=== PATIENT | male | born 1980 | race Caucasian/White ===

== ENCOUNTER 2020-03-16 18:25 | Inpatient (IN) ==
[2020-03-16] MEDS ORDERED: MORPHINE IV ONE ×2 (19:17→20:23)
[2020-03-16] MEDS ORDERED: ZOFRAN IV ONE (19:17)
[2020-03-16] MEDS ORDERED: NS 1,000 ML IV ONE (19:17)
[2020-03-16 19:55] LABS: BASO# 0.05 X1000 (0.0-0.2); BASO% 0.9 % (0.0-0.8); EOS# 0.13 X1000 (0.0-0.7); EOS% 2.3 % (0.0-10.0); HEMATOCRIT 47.6 % (42.0-52.0); HEMOGLOBIN 16.6 g/dL (14.0-18.0); IMM GRAN# 0.02 X1000 (0.0-0.04); IMM GRAN% 0.3 % (0.0-0.5); LYMPH# 1.61 X1000 (1.2-3.4); LYMPH% 27.9 % (20.5-51.1); MCH 29.5 PG (27-31); MCHC 34.9 g/dL (33-37); MCV 84.7 FL (81-99); MONO# 0.67 X1000 (0.11-0.59); MONO% 11.6 % (1.7-9.3); MPV 9.6 FL (7.4-10.4); NEUT# 3.29 X1000 (1.4-6.5); PLT 204 X1000 (130-400); RBC 5.62 XMIL (4.7-6.1); RDW 13.7 % (11.5-14.5); WBC 5.77 X1000 (4.8-10.8)
[2020-03-16 20:00] LABS: URINE SOURCE CLEAN CATCH
[2020-03-16 20:13] LABS: BILIRUBIN URINE MODERATE (NEGATIVE); BLOOD URINE MODERATE (NEGATIVE); COLOR YELLOW; GLUCOSE URINE NEGATIVE (NEGATIVE); KETONE URINE 60 mg/dL (NEGATIVE); LEUKOCYTES URINE TRACE (NEGATIVE); NITRITE URINE NEGATIVE (NEGATIVE); PROTEIN URINE 100 mg/dL (NEGATIVE); SP GRAVITY URINE 1.033; TURBIDITY URINE CLEAR (CLEAR); UR EPITHELIAL CELLS <10 /HPF (<10); URINE BACTERIA 2+ /HPF; URINE CASTS NONE SEEN; URINE CRYSTALS NONE SEEN; URINE RBC <10 /HPF (<10); URINE WBC <10 /HPF (<10); URINE YEAST NONE SEEN; UROBILINOGEN URINE 6 mg/dL (NORMAL)
[2020-03-16 20:14] LABS: URINE SMALL ROUND CELLS NONE SEEN
[2020-03-16 20:28] LABS: AGAP 13; ALBUMIN 3.9 g/dL (3.5-5.0); ALKALINE PHOSPHATASE 169 U/L (32-122); BUN 15 mg/dL (8-22); CALCIUM 8.9 mg/dL (8.8-10.2); CHLORIDE 100 mmol/L (98-107); COSMO 274; CREATININE 0.7 mg/dL (0.7-1.2); ESTIMATED GFR > 60; GLUCOSE 90 mg/dL (70-104); GOT 4323 U/L (10-34); GPT 6096 U/L (10-44); LIPASE 34 U/L (13-60); SODIUM 137 mmol/L (136-145); TCO2 25 mmol/L (25-35)
--- NOTE | 2020-03-16 21:17 | Diag Imaging Result Doc PS360 ---
EXAM: CT ABD/PELVIS W/IV CONT ONLY INDICATION: Abdominal pain, very tender RUQ TECHNIQUE: This exam was performed using automated exposure control, adjustment of mA or kV according to patient size, and/or use of iterative reconstruction technique. COMPARISON: None. FINDINGS: There is prominent gallbladder wall thickening and pericholecystic inflammatory stranding consistent with cholecystitis. There is trace free fluid tracking from the gallbladder fossa inferiorly. There is mild intrahepatic periportal edema. The liver is unremarkable, otherwise. The spleen, pancreas, adrenal glands, kidneys, and urinary bladder are unremarkable. The appendix is normal. There is no evidence of focal bowel wall thickening or bowel obstruction. The remainder of the GI tract is grossly unremarkable. No free abdominal gas is identified. IMPRESSION: Inflammatory changes around the gallbladder with wall thickening and pericholecystic fluid consistent with cholecystitis. Electronically signed by Laron Alexis 03/16/2020 9:15 PM
[2020-03-16] MEDS ORDERED: FLAGYL 500 MG/NS 500 MG/100 ML IVPB IV ONE (22:22)
[2020-03-16] MEDS ORDERED: CIPRO 400 MG/D5W 400 MG/200 ML IVPB IV ONE (22:22)
--- NOTE | 2020-03-16 22:46 | GENERAL SURGERY CONSULTATION ---
DATE: 03/16/2020 REASON FOR CONSULTATION: Possible cholecystitis. HISTORY OF PRESENT ILLNESS: This is a 39-year-old gentleman who presented with 3 days of abdominal discomfort, nausea. He has recently injected methamphetamine 3 weeks ago, but he is in recovery program now and has been diligent about that. He does smoke, but says he had not felt like it lately. MEDICAL HISTORY: Otherwise negative. SURGICAL HISTORY: He has had an orthopedic procedure to his arm. SOCIAL HISTORY: Recent IV methamphetamine use. No significant alcohol. He does smoke. FAMILY HISTORY: Negative for inherited hepatitis. REVIEW OF SYSTEMS: Ten-point review of systems negative otherwise mentioned in HPI. PHYSICAL EXAMINATION: Vital signs: He is afebrile. No tachycardia. Blood pressure has been okay. General: He is alert, appears uncomfortable but in no acute distress. HEENT: He does have faint scleral icterus. No cervical mass. Cardiovascular: Normal rate. Pulmonary: No increased work of breathing. Abdomen: Soft, tender in the right upper quadrant but nondistended. No peritonitis Integument: Warm, dry. Faint jaundice noted. Psychiatric: Appropriate affect. Neurologic: No gross deficits. Lymphatic: No cervical, axillary or inguinal adenopathy. LABORATORY DATA: White count is normal. Hematocrit is normal. His bilirubin is in the 5 range. Transaminases were 4000 and 6000. Alkaline phosphatase elevated. Lipase normal. Urinalysis has some bilirubin, no nitrates noted, no leukocytes. IMAGING: CT scan shows pericholecystic fluid, but no intrahepatic biliary dilation. No other abnormalities. ASSESSMENT AND PLAN: This is a gentleman with possible cholecystitis. It is possible this is drug or viral-mediated hepatitis given the profound elevation of his transaminases. As such we are going to admit to the hospitalists, check a UDS as well as a hepatitis panel. If this checks out, then we will plan on cholecystectomy. We discussed the possibility of this with the patient. We did discuss risks of bleeding, infection, damage to surrounding structures, conversion to open, anesthetic related complication, worsening liver dysfunction, possible common duct stone, need for ERCP and bile leak. He understands all this and consents. We will keep him n.p.o., start him on Zosyn and transfer him to [facility]. cc: Mack Archer MD
--- NOTE | 2020-03-16 22:52 | PROVIDER DOCUMENTATION ---
This chart was entered by Amarilis Parish Scribe, acting as scribe for Rhina Vivas MD. HPI-Abdominal Pain/GI Problem - General Chief Complaint: Abdominal Pain Stated Complaint: ABDOMINAL PAIN Time Seen by Provider: 03/16/20 18:55 Source: patient Allergies/Adverse Reactions: Patient Allergies Allergy/AdvReac Type Severity Reaction Status Date / Time amoxicillin Allergy ITCHING Verified 03/16/20 19:40 Home Medications: Home Medication List Medication Instructions Recorded Confirmed Last Taken Type NK [No Home Medications] 03/16/20 03/16/20 Unknown History - History of Present Illness-ABD Nature of Presenting Problems: Pt is a 39 yowm in ED with c/o of generalized abdominal pain, vomitting, chills, weakness, and fatigue that started 3 days ago and has gotten worse. Pt also states that he has not had a BM in 3 days. Pt reports that he has not been able to keep much food or water down due to vomiting today. Pt has been at a [facility] for the last 3 weeks while getting of meth. Pt does not know if he is running a fever. Pt is moderately distressed, curled up on exam bed and nontoxic in appearance. Abdominal Pain Onset Location: reports: generalized abdomen Pain Radiation: reports: no radiation Quality of Pain: reports: stabbing, throbbing Severity in ED: reports: moderate Onset/Duration: reports: gradual, 3 days ago Timing: reports: still present, constant, getting worse Activities at Onset: reports: light activity Modifying Factors: worse with: movement, palpation Associated Symptoms: reports: constipation, fever/chills, nausea, vomiting, weakness. denies: diarrhea, shortness of breath Last BM: 3 days ago # of Diarrhea Episodes: 0 # of Vomiting Episodes: 8 Emesis Description: reports: clear Bruising or Bleeding Gums?: No Similar Symptoms Previously?: No Recently seen or treated by another doctor?: Yes (03/09/2020 in ED) Review of Systems - Adult - REVIEW OF SYSTEMS - ADULT Constitutional: reports: see HPI, chills Eyes: reports: no symptoms reported Ears, Nose, Mouth & Throat: reports: no symptoms reported Cardiovascular: denies: chest pain, syncope Respiratory: denies: cough, shortness of breath Gastrointestinal: reports: abdominal pain, constipation, nausea, vomiting. denies: diarrhea Genitourinary: reports: no symptoms reported Musculoskeletal: reports: no symptoms reported Integumentary: reports: no symptoms reported Neurological: reports: no symptoms reported Psychiatric: reports: no symptoms reported Endocrine: reports: no symptoms reported Hematologic/Lymphatic: reports: no symptoms reported Allergic/Immunologic: reports: no symptoms reported All Other Systems: Reviewed and Negative Past History - Adult - PAST MEDICAL HISTORY-ADULT Review of Records: reports: Old Records Reviewed, Nursing Assessment Review, Medications Reviewed, Social history reviewed & non-contributory. Major Childhood Illnesses: reports: denies history Cardiovascular: reports: denies history Respiratory: reports: asthma Gastrointestinal: reports: denies history Genitourinary: reports: denies history Musculoskeletal: reports: denies history Neurological: reports: denies history Endocrine/Immune: reports: denies history Other Conditions: reports: denies history - IMMUNIZATION STATUS Childhood Immunizations: See Nurse Assessment Flu Vaccine: See Nurse Assessment - FAMILY HISTORY Family History: reviewed, not pertinent - SOCIAL HISTORY Smoking: cigarettes, less than 1 pack/day Provider spent 3-5 mins advising pt. on dangers of tobacco.: Discussed manners to quit use, and f/u contacts for add'l counseling. Substance Use: amphetamines (at [facility] to detox from meth) Living Situation: other (half way house to get off meth) Physical Exam-General - PHYSICAL EXAM-ADULT Initial Vital Signs Reviewed: Yes (HR 108) - CONSTITUTIONAL General Appearance: alert, moderate distress - EYES Eyes: PERRL/EOMI, pink conjunctivae - HEAD, EARS, NOSE, MOUTH & THROAT HENMT: normocephalic/atraumatic, moist mucous membranes, pharynx normal - NECK Neck: non-tender, full range of motion, supple - RESPIRATORY Respiratory: chest non-tender, lungs clear, normal breath sounds, no respiratory distress - CARDIOVASCULAR Cardiovascular: normal peripheral pulses, tachycardia - GASTROINTESTINAL (ABDOMEN) Abdominal Exam: tenderness (moderate RUQ; slightly less LLQ) - LYMPHATIC Lymphatic: no adenopathy - MUSCULOSKELETAL Back Exam: normal inspection, no CVA tenderness, no vertebral tenderness Extremity: normal range of motion, non-tender - SKIN Integumentary: normal color, normal turgor, warm/dry - NEUROLOGIC Neurologic: grossly normal - PSYCHIATRIC Psych/Mental Status: normal thought content, normal thought process, oriented x 3, anxious, disheveled Progress - PLAN OF CARE/RESULTS Progress/Plan/Lab Results: Vital Signs - 8 hr 03/16/20 18:39 Temperature 98.3 F Pulse Rate 108 H Respiratory Rate 18 Blood Pressure 113/72 O2 Sat by Pulse Oximetry 98 Orders Category Date Time Status Saline Loc NOW Care 03/16/20 19:01 Active CBC WITH ELECTRONIC DIFF [HEME] Stat Lab 03/16/20 19:01 Uncollected COMPREHENSIVE METABOLIC PANEL [CHEM] Stat Lab 03/16/20 19:01 Uncollected LIPASE [CHEM] Stat Lab 03/16/20 19:01 Uncollected UA NIMS W/REFLEX CULT [URINALYSIS] Stat Lab 03/16/20 19:02 Uncollected Result Diagrams: 03/16/20 19:23 03/16/20 19:23 - REASSESSMENT Reassessment #1 Time Reassessed: 20:22 Status: unchanged (MORPHINE 4MG CAUSED VOMITING , THEN PAIN IMPROVED BUT NOW RETURNING, STUDIES PENDING.) - CT/MRI 1 CT Study: Abdomen Impression: See EMR Report ([facility] - [address] [place] [address], [address], [place] [address] [facility] - [address] [place] [address] Department of Imaging Patient: RHINA ARMSTRONGADM Date: 03/16/20MR#: [id number] : 1980ADM [id number] Age/Sex: 39/MRoom/Bed: Loc: P.ED Ordering Physician: Rhina Vivas MD Family Physician: None,PCP Reason for Procedure: morded abd pain, very tender RUQ Signed EXAM: CT ABD/PELVIS W/IV CONT ONLY INDICATION: Abdominal pain, very tender RUQ TECHNIQUE: This exam was performed using automated exposure control, adjustment of mA or kV according to patient size, and/or use of iterative reconstruction technique. COMPARISON: None. FINDINGS: There is prominent gallbladder wall thickening and pericholecystic inflammatory stranding consistent with cholecystitis. There is trace free fluid tracking from the gallbladder fossa inferiorly. There is mild intrahepatic periportal edema. The liver is unremarkable, otherwise. The spleen, pancreas, adrenal glands, kidneys, and urinary bladder are unremarkable. The appendix is normal. There is no evidence of focal bowel wall thickening or bowel obstruction. The remainder of the GI tract is grossly unremarkable. No free abdominal gas is identified. IMPRESSION: Inflammatory changes around the gallbladder with wall thickening and pericholecystic fluid consistent with cholecystitis. Electronically signed by Laron Alexis 03/16/2020 9:15 PM 03/16/202114 Interpreting Physician: Laron Alexis MD Dictated Date/Time: 03/16/202110 cc: Rhina Vivas MD; None,PCP) - CONSULTS/PCP/HOSPITALIST Notification #1 *Consult/PCP/Hospitalist*: dr rashi handy Time Discussed: 22:22 Consult Disposition: Admit (recommends admit to [facility] hospitalist and will co nsult.) #2 Consult: Dr. Tate Time Discussed: 22:28 Consult Disposition: Admit ([facility]) Departure - Departure Date of Disposition Decision: 03/16/20 Time of Disposition Decision: 21:35 DIAGNOSIS: Acute cholecystitis, Acute cholecystitis due to biliary calculus, LFT elevation, Hepatitis Abdominal pain Qualifiers: Abdominal location: right upper quadrant Qualified Code(s): R10.11 - Right upper quadrant pain Disposition: ADMITTED INPATIENT 09 Certified Medical Emergency: Emergent Condition: Stable - Critical Care Note This patient required my direct & personal management of CC.: Yes Total Time (mins): 40 Critical Care Statement: This patient required my direct personal management to treat or rule out processes, the absence of which, could potentiallly result in sudden, clinically significant life or limb threatening deterioration. Attestation - Physician/ JAUN Attestation Patient care was provided by Advanced Practice Provider:: No The physician spent face to face time with patient:: Yes Advanced Practice Provider documentation review:: Supervising physician onsite and consulted in the evaluation and care of this patient. The physician did have a face to face encounter with the patient. This chart was documented by the indicated scribe, (Amarilis Parish, [employer]) and accurately reflects the services I performed and decisions made by me, Rhina Vivas MD, as attested by the provider's signature.
--- NOTE | 2020-03-17 01:40 | HISTORY AND PHYSICAL ---
PRIMARY CARE PHYSICIAN: None. CHIEF COMPLAINT: Abdominal pain x3 days. HISTORY OF PRESENTING ILLNESS: A 39-year-old male with a history of asthma and IV drug abuse, who had presented to emergency department with 3 days history of having right upper quadrant abdominal pain. The patient states that he was at times nauseated and did not feel well. He was seen in this ED initially at [facility] and, at that time, he had a CT scan done which did show a suspicion for cholecystitis. His case was discussed with General surgery, who recommended the patient be transferred to [facility] for further evaluation and management. At the time of my examination, patient denied any headache, chest pain, shortness of breath, hemoptysis or weight changes, but complained of abdominal pain. PAST MEDICAL HISTORY: Includes asthma. PAST SURGICAL HISTORY: Left arm surgery. ALLERGIES: Amoxicillin. CURRENT MEDICATIONS: None. SOCIAL HISTORY: Wrokmmo-knxs-exewp history of smoking. Denies any history of alcohol use. Admits to IV methamphetamine use. FAMILY HISTORY: No history of coronary disease. REVIEW OF SYSTEMS: Fourteen point review of systems is as in HPI. Other systems negative physical. EXAMINATION: General: Cooperative, friendly male. He is resting more comfortably now. Vital Signs: Temperature 98 degrees, pulse 86, respiration 18, blood pressure 114/74. HEENT: Atraumatic, normocephalic. Extraocular movements intact. PERRLA. Neck: No masses. Chest: Clear to auscultation. Cardiovascular: Regular rhythm. Abdomen: Soft, right upper quadrant tenderness. Extremities: No edema. Neurologic: He is awake, alert, oriented x3. Genitourinary: No bladder distention. Skin: Warm. LABORATORIES AND STUDIES: Sodium 137, potassium 4.0, chloride 100, CO2 is 25, BUN is 15, creatinine 0.7. Glucose 90, bilirubin is 5.50, AST is 4323, ALT 6096, alkaline phosphatase 169. Abdominal and pelvic CT shows inflammatory changes around the gallbladder, wall thickening and pericholecystic fluid consistent with cholecystitis. ASSESSMENT: This 39-year-old male with a history of asthma, presented to emergency department with 3 days history of having right upper quadrant abdominal pain. He was seen in the ED at [facility] and due to lack of subspecialist care, he was transferred for further evaluation of cholecystitis. 1. Acute cholecystitis. 2. Acute hepatitis. 3. IV drug abuse. 4. Asthma. PLAN: 1. We will admit patient to surgical floor. 2. General surgery was already consulted. 3. We will keep patient NPO. Give medical pain control and start him on IV antibiotics. 4. We will check a hepatitis profile. 5. Counseled patient on IV drug cessation. 6. We will use albuterol nebs p.r.n. if needed. 7. We will put patient on DVT prophylaxis with SCD. 8. We will continue to follow and reassess, make further recommendation based on patient's clinical course. cc: Kt Tate MD
[2020-03-17] MEDS: NS 1,000 ML IV SCH ×3 (02:00→21:41)
[2020-03-17] MEDS: INVANZ 1 GM/NS 1 GM/50 ML IVPB IV SCH (02:00)
[2020-03-17] MEDS: MORPHINE IV PRN ×2 (02:00→18:23)
[2020-03-17] MEDS: ZOFRAN IV PRN (03:06)
[2020-03-17 07:58] LABS: BASO# 0.16 X1000 (0.0-0.2); EOS# 0.09 X1000 (0.0-0.7); EOS% 1.7 % (0.0-10.0); HEMATOCRIT 44.9 % (42.0-52.0); HEMOGLOBIN 15.5 g/dL (14.0-18.0); LYMPH# 1.36 X1000 (1.2-3.4); LYMPH% 25.9 % (20.5-51.1); MCH 29.5 PG (27-31); MCHC 34.5 g/dL (33-37); MCV 85.5 FL (81-99); MONO# 0.49 X1000 (0.11-0.59); MONO% 9.3 % (1.7-9.3); MPV 9.5 FL (7.4-10.4); NEUT# 3.16 X1000 (1.4-6.5); NEUT% 60.1 % (42.2-75.2); PLT 192 X1000 (130-400); RBC 5.25 XMIL (4.7-6.1); RDW 14.1 % (11.5-14.5); WBC 5.26 X1000 (4.8-10.8)
[2020-03-17 09:14] LABS: UR AMPHETAMINES QUAL NONE DETECTED (NONE DETECT); UR BARBITUATES QUAL NONE DETECTED (NONE DETECT); UR BENZODIAZEPIN QUAL NONE DETECTED (NONE DETECT); UR CANNABINOIDS QUAL NONE DETECTED (NONE DETECT); UR COCAINE QUAL NONE DETECTED (NONE DETECT); UR METHADONE QUAL NONE DETECTED (NONE DETECT); UR OPIATES QUAL PRESUMPTIVE POSITIVE (NONE DETECT); UR OXYCODONE QUAL NONE DETECTED (NONE DETECT); UR PCP QUAL NONE DETECTED (NONE DETECT)
[2020-03-17 09:15] LABS: AGAP 13; ALB/GLOB RATIO 1.1; ALBUMIN 3.2 g/dL (3.5-5.0); ALKALINE PHOSPHATASE 160 U/L (32-122); BUN 16 mg/dL (8-22); CALCIUM 8.1 mg/dL (8.8-10.2); CHLORIDE 103 mmol/L (98-107); COSMO 277; CREATININE 0.8 mg/dL (0.7-1.2); ESTIMATED GFR > 60; GLUCOSE 75 mg/dL (70-104); GOT 4282 U/L (10-34); GPT 5793 U/L (10-44); LIPASE 18 U/L (13-60); POTASSIUM 4.4 mmol/L (3.5-5.1); SODIUM 139 mmol/L (136-145); TCO2 23 mmol/L (25-35); TOTAL BILIRUBIN 6.05 mg/dL (0.20-1.00)
--- NOTE | 2020-03-17 10:40 | PROGRESS NOTE ---
DATE: 03/17/2020 SUBJECTIVE: Patient reports still having right upper quadrant abdominal pain. Denies any fever or chills. OBJECTIVE: Vital Signs: Temperature 97.6 degrees, heart rate 77, respiratory rate 18, blood pressure 107/70, O2 saturation is 96% on room air. General examination: This is a 39-year-old male lying in bed in no acute distress. HEENT: Head is normocephalic, atraumatic. Icteric sclerae and pale conjunctivae. Neck: No JVD noted. No carotid bruit. Cardiovascular Exam: S1, S2 heard. No murmurs, gallops, or rubs. Regular rate and rhythm. Respiratory Exam: Clear bilaterally to auscultation. No work of breathing or using accessory muscles. Abdomen: Soft, mildly tender to palpation in the right upper quadrant but no signs of peritoneal irritation. Bowel sounds present. No organomegaly. Extremities: No clubbing, cyanosis, or edema. Peripheral pulses present in both legs. Neurological Exam: The patient is alert and oriented x3, moves 4 extremities. LABORATORY DATA: CBC is unremarkable. CMP reveals AST 4282 and ALT 5793 with alkaline phosphatase 160, and total bilirubin 6.05. ASSESSMENT AND PLAN: 1. Acute cholecystitis. 2. Acute hepatitis. 3. Active intravenous drug abuse. 4. History of bronchial asthma. PLAN: Patient has been admitted to the hospital here for acute cholecystitis. We are still pending the results off abdominal ultrasound. The transaminases are very elevated, which makes me think this patient may have developed also acute hepatitis considering his current history of IV drug use. We are going to check also a HIV as well. Will continue with the n.p.o. General Surgery is following this patient. The patient has been encouraged to stop abusing drugs. cc: Sean Abrams MD MTDD
--- NOTE | 2020-03-17 11:45 | GENERAL SURGERY PROGRESS NOTE ---
DATE: 03/17/2020 SUBJECTIVE: His abdominal pain is better this morning. There is still some nausea. OBJECTIVE: Vital Signs: No fevers documented. Tachycardia, blood pressure 107/70. General: He is alert. He is still faintly jaundiced. Abdomen: Soft. There is no peritonitis. Mild tenderness along the right upper quadrant. DIAGNOSTIC DATA: His white count remains normal at 5, hematocrit 44, creatinine 0.8. His bilirubin is 6.05, slightly up from yesterday. His transaminases remain in the 4000 to almost 6000 range. His lipase again is normal. UDS was negative for amphetamines, but positive for opiates, most likely from what he received in the emergency department. He has hepatitis panel pending; hopefully, this will result later today. I have ordered a fractionated bilirubin to check this as well. ASSESSMENT AND PLAN: A 39-year-old gentleman with hepatitis, presumptively this thought viral given his intravenous drug abuse. He does have edema around his gallbladder, which is not uncommon in acute hepatitis. It is unclear if this is the main source, although given his profound transaminitis, I think that this is unlikely gallbladder mediated, and as such, I would advise continued treating with intravenous antibiotics and ruling out underlying viral acute hepatitis, which if were the case would be made substantially worse by removing his gallbladder. I have discussed the plan with the patient. I will agree with the current antibiotics and his ongoing workup. I have ordered an MRCP to rule out a distal bile duct obstruction. We will see what his ultrasound shows as well. I tentatively have him posted for tomorrow if his workup is negative for underlying viral etiology, otherwise we will continue supportive care. cc: MD Sean Lisa MD
--- NOTE | 2020-03-17 12:32 | Diag Imaging Result Doc PS360 ---
EXAM: MRI MRCP (ABD W/O CONTRAST) INDICATION: possible cbd obstruction TECHNIQUE: COMPARISON: CT abdomen and pelvis dated 03/16/2020. No prior MRCP is available for comparison. FINDINGS: The gallbladder is collapsed. As was seen on the previous CT, there is significant wall thickening as well as pericholecystic edema with trace nonloculated fluid extending from the gallbladder fossa to the lower abdomen consistent with cholecystitis. The common bile duct is normal in diameter measuring approximately 3 mm in diameter. There are no ductal filling defect to indicate choledocholithiasis. The liver is unremarkable. The pancreas appears normal. No discrete pancreatic mass is appreciated. The spleen, adrenal glands, kidneys, and the visualized segments of the GI tract are unremarkable. There has been development of trace pleural fluid at the right lung base. IMPRESSION: 1.Findings consistent with acute cholecystitis. 2.Normal common bile duct diameter with no filling defects appreciated. 3.Development of a trace effusion at the right lung base. Electronically signed by Laron Alexis 03/17/2020 12:30 PM
[2020-03-17 19:56] LABS: HIV ANTIBODY SCREEN SEE COMMENTS
[2020-03-18] MEDS: INVANZ 1 GM/NS 1 GM/50 ML IVPB IV SCH (01:08)
[2020-03-18] MEDS: MORPHINE IV PRN ×2 (06:44→14:03)
[2020-03-18 07:16] LABS: BASO# 0.04 X1000 (0.0-0.2); BASO% 0.9 % (0.0-0.8); EOS# 0.07 X1000 (0.0-0.7); EOS% 1.6 % (0.0-10.0); HEMATOCRIT 42.1 % (42.0-52.0); HEMOGLOBIN 14.5 g/dL (14.0-18.0); LYMPH# 1.24 X1000 (1.2-3.4); LYMPH% 28.7 % (20.5-51.1); MCH 29.4 PG (27-31); MCHC 34.4 g/dL (33-37); MCV 85.4 FL (81-99); MONO# 0.52 X1000 (0.11-0.59); MPV 9.7 FL (7.4-10.4); NEUT# 2.45 X1000 (1.4-6.5); NEUT% 56.8 % (42.2-75.2); PLT 214 X1000 (130-400); RBC 4.93 XMIL (4.7-6.1); RDW 14.1 % (11.5-14.5); WBC 4.32 X1000 (4.8-10.8)
[2020-03-18 07:27] LABS: INR 1.76; PROTIME 20.9 Seconds (11.0-16.0)
[2020-03-18 07:52] LABS: AGAP 12; ALB/GLOB RATIO 1.1; ALBUMIN 2.8 g/dL (3.5-5.0); ALKALINE PHOSPHATASE 153 U/L (32-122); BUN 15 mg/dL (8-22); CALCIUM 7.9 mg/dL (8.8-10.2); CHLORIDE 102 mmol/L (98-107); COSMO 275; CREATININE 0.8 mg/dL (0.7-1.2); ESTIMATED GFR > 60; GLUCOSE 80 mg/dL (70-104); GOT 5058 U/L (10-34); GPT 6220 U/L (10-44); POTASSIUM 4.2 mmol/L (3.5-5.1); SODIUM 138 mmol/L (136-145); TCO2 24 mmol/L (25-35); TOTAL BILIRUBIN 6.01 mg/dL (0.20-1.00); TOTAL PROTEIN 5.4 g/dL (6.3-8.3)
--- NOTE | 2020-03-18 08:38 | Diag Imaging Result Doc PS360 ---
EXAM: US ABDOMEN-COMPLETE INDICATION: abdominal pain COMPARISON: None. FINDINGS: The gallbladder wall is echogenic and markedly thickened and edematous. No discrete shadowing gallstones are identified. There does appear to be sludge in the gallbladder lumen. The common bile duct is normal in diameter. Sonographic Oneal's sign was reported to be positive by the technologist. The liver is grossly unremarkable. Portal venous flow is hepatopetal. The visualized pancreas is unremarkable. The aorta and IVC are grossly unremarkable. The spleen is unremarkable. The kidneys are grossly unremarkable. There is an incidental small right pleural effusion. IMPRESSION: 1.Markedly thickened and edematous gallbladder wall and a positive sonographic Oneal sign suggesting acute cholecystitis. Another differential consideration is acute hepatitis, which can present with gallbladder wall thickening. Please correlate clinically. 2.Small right pleural effusion noted incidentally. Electronically signed by Laron Alexis 03/18/2020 8:35 AM
--- NOTE | 2020-03-18 09:04 | PROGRESS NOTE ---
DATE: 03/18/2020 SUBJECTIVE: He came in on the , complaining of abdominal pain for 3 days. He is a 39-year- old white male with history of asthma and IV drug abuse, who presented to the emergency department with a 3-day history of having right upper quadrant abdominal pain. States that he was at times nauseated and did not feel well. Went to the emergency room at [facility]. At that time, CT scan showed suspicion for cholecystitis. Case was discussed with General Surgery, who recommended the patient transfer to [facility]. At that time on examination, denied any headache, chest pain, shortness of breath, hemoptysis, weight changes. No complaint. Past medical history with history of asthma, left arm surgery in the past. Dr. Archer had evaluated. CT showed pericholecystic fluid, but no intrahepatic biliary dilatation. No other abnormalities. So, possible cholecystitis. It is possible this could be drug or viral mediated hepatitis given his elevation in transaminases. Checking an ultrasound, which was done this morning and got a hepatitis panel. Exam today, still says the pain is worse, uncomfortable, and points to the epigastrium and right upper quadrant, but it goes across the top of the midline of the abdomen. OBJECTIVE: Temperature 98.8 degrees, pulse 89, respirations 18, blood pressure 104/67.Eyes: Pupils are equal. Neck: No distended neck veins. Lungs: Clear in all lung mauro. Cardiovascular exam: Regular rhythm and rate without murmur or S3. : Urine output was 1900 mL. LABS: Review of his blood work yesterday: White blood cell count was 4320, hematocrit 42, platelet count 214,000. Sodium 138, potassium 4.2, chloride 102. BUN is 12, creatinine 0.8. Transaminases: AST was at 4000, when it came in it was 5000 with ALT of 6000, total bilirubin is around 6. Pro time is 20. He was positive for opiates on his drug screen. X-RAYS: Abdominal and pelvic CT: Inflammatory change around the gallbladder wall thickening and pericholecystic fluid consistent with possible cholecystitis. MRCP findings: Consistent with acute cholecystitis. Normal common bile duct diameter. No filling defects appreciated. Development of trace effusion in the right lung base. Abdominal ultrasound was done this morning. Results pending. REVIEW OF HIS ORDERS: He is on ertapenem 1 g IV q. 24 hours. Getting morphine 2 mg IV q. 4 hours p.r.n. pain. Ciprofloxacin was given 1 dose and metronidazole is given 1 dose of IV in the emergency room. cc: MD Sean Arciniega MD
[2020-03-18] MEDS ORDERED: DIPRIVAN 1% ONE (11:29)
[2020-03-18] MEDS ORDERED: XYLOCAINE-MPF 2% ONE (11:29)
[2020-03-18] MEDS ORDERED: SUFENTA ONE ×2 (11:31→11:57)
[2020-03-18] MEDS ORDERED: VERSED ONE (11:41)
--- NOTE | 2020-03-18 13:14 | GENERAL SURGERY PROGRESS NOTE ---
DATE: 03/18/2020 SUBJECTIVE: He is still having some vague discomfort in his right upper quadrant and epigastrium. Low-grade fever of 100 overnight but afebrile this morning, pulse 89, and blood pressure 104/67. In general, he is alert. His urine is dark in the urinal. He does have a stable amount of icterus and jaundice. His abdomen is soft. There is no peritonitis. Subjective tenderness along the upper quadrants of his abdomen, but no elvia guarding or rebound. His white count is 4 and hematocrit 42. His INR is 1.76, which is elevated. Creatinine is 0.8. His bilirubin stable at 6. His transaminases remain elevated at 5000 to 6000 range. The lipase was normal yesterday. He had an HIV test that was negative. His direct component was 5. He had an MRCP that showed no biliary dilation or biliary obstruction. Again, showed edema and thickening of the gallbladder wall. He had an abdominal ultrasound again that showed normal bile duct. No obvious gallstones but there was tenderness noted over the right upper quadrant. The gallbladder wall was thickened and edematous, but not significantly dilated. ASSESSMENT AND PLAN: This is a 39-year-old gentleman with acute hepatitis of unclear etiology. I have called the lab, and viral panel hopefully will be back later today or in the morning. His transaminitis and hyperbilirubinemia remain the same although there is no evidence of biliary obstruction, which would suggest more of an intrahepatic issue. There is potentially multiple explanation for this. I still feel as though the gallbladder finding may be secondary to his underlying liver issue, but he is on appropriate antibiotics. His white count remains normal, and he is hemodynamically stable so I do not suspect that we have a worsening infectious issue here. We will continue to follow along. If the etiology of his hepatitis has been ruled out, and we feel this is primary gallbladder mediated we will consider cholecystectomy. cc: MD Ben Lisa MD
[2020-03-18] MEDS: ZOFRAN IV PRN (14:03)
[2020-03-18] MEDS: NS 1,000 ML IV SCH (14:05)
[2020-03-18 15:40] LABS: HEPATITIS PROFILE ACUTE SEE COMMENTS
[2020-03-19] MEDS: INVANZ 1 GM/NS 1 GM/50 ML IVPB IV SCH (00:33)
[2020-03-19] MEDS: NS 1,000 ML IV SCH ×4 (00:39→16:07)
[2020-03-19] MEDS: ZOFRAN IV PRN ×5 (03:39→23:24)
[2020-03-19] MEDS: MORPHINE IV PRN ×5 (03:39→23:24)
[2020-03-19 06:31] LABS: BASO# 0.03 X1000 (0.0-0.2); BASO% 0.7 % (0.0-0.8); EOS# 0.03 X1000 (0.0-0.7); EOS% 0.7 % (0.0-10.0); HEMATOCRIT 44.5 % (42.0-52.0); HEMOGLOBIN 15.1 g/dL (14.0-18.0); LYMPH# 1.15 X1000 (1.2-3.4); LYMPH% 26.4 % (20.5-51.1); MCH 29.2 PG (27-31); MCHC 33.9 g/dL (33-37); MCV 85.9 FL (81-99); MONO# 0.46 X1000 (0.11-0.59); MONO% 10.6 % (1.7-9.3); MPV 9.6 FL (7.4-10.4); NEUT# 2.68 X1000 (1.4-6.5); NEUT% 61.6 % (42.2-75.2); PLT 223 X1000 (130-400); RBC 5.18 XMIL (4.7-6.1); RDW 14.6 % (11.5-14.5); WBC 4.35 X1000 (4.8-10.8)
[2020-03-19 06:40] LABS: INR 1.72; PROTIME 20.5 Seconds (11.0-16.0)
[2020-03-19 07:01] LABS: AGAP 11; ALBUMIN 2.7 g/dL (3.5-5.0); ALKALINE PHOSPHATASE 155 U/L (32-122); BUN 15 mg/dL (8-22); CALCIUM 8.3 mg/dL (8.8-10.2); CHLORIDE 100 mmol/L (98-107); COSMO 271; CREATININE 0.7 mg/dL (0.7-1.2); ESTIMATED GFR > 60; GLUCOSE 59 mg/dL (70-104); POTASSIUM 4.8 mmol/L (3.5-5.1); SODIUM 136 mmol/L (136-145); TCO2 25 mmol/L (25-35); TOTAL BILIRUBIN 8.47 mg/dL (0.20-1.00); TOTAL PROTEIN 5.5 g/dL (6.3-8.3)
[2020-03-19 07:12] LABS: GOT 5118 U/L (10-34); GPT 6547 U/L (10-44)
--- NOTE | 2020-03-19 08:45 | PROGRESS NOTE ---
DATE: 03/19/2020 SUBJECTIVE: Mr. Shea feels better. His abdomen is still uncomfortable and tender in the right upper quadrant epigastric area. He is hungry, though I am going to put him on full liquids today. He remains afebrile. OBJECTIVE: Vital Signs: Temperature 98.3 degrees, pulse 90, respirations 18, blood pressure 106/55. Eyes: Pupils are equal and round. Lungs: Clear in all lung mauro. Cardiovascular exam: Regular rhythm and rate without murmur or S3. Abdomen: Soft. Skin: Skin is warm and dry. : Urine output is 1600 mL. LABS: His urine culture grew out Escherichia coli that is sensitive to cefazolin. ASSESSMENT AND PLAN: His hepatitis profile was reactive to hepatitis A which is consistent. He is negative for hepatitis B and C. He also was negative or nonreactive for human immunodeficiency virus, so this is consistent with acute hepatitis. He may have an element of cholecystitis as well, but clinically he appears better. I am going to put him on full liquids and advance his diet as we can. Hopefully, he can go home soon. He is on ertapenem 1 g IV q. 24 hours; I will continue that for now. cc: Ben Laird MD
--- NOTE | 2020-03-19 19:37 | GENERAL SURGERY PROGRESS NOTE ---
DATE: 03/19/2020 SUBJECTIVE: Feels better this morning. No fevers documented. No tachycardia. Blood pressure has been okay. Oxygen saturation is 93 on room air. OBJECTIVE: General: He is alert. HEENT: He continues to have scleral icterus. Skin: Exam shows jaundice. Abdomen: Soft, nontender, nondistended. Neurologically: He does not have any asterixis. LABORATORY DATA: White count 4, hematocrit 44. INR is 1.72. Creatinine 0.7, bilirubin is up to 8.47, AST and ALT 5,100 and 6,500 respectively. His hepatitis panel shows that he has IgM positive, reactive for hepatitis A. ASSESSMENT AND PLAN: This is a 39-year-old gentleman with a history of intravenous drug abuse and acute viral hepatitis A. Suspect gallbladder findings are secondary to this and strongly advised against any cholecystectomy. He does have worsening liver function tests. Would continue medical management of this and at least ensure some degree of improvement prior to discharge. cc: MD Ben Lisa MD
[2020-03-20] MEDS: INVANZ 1 GM/NS 1 GM/50 ML IVPB IV SCH (01:11)
[2020-03-20] MEDS: NS 1,000 ML IV SCH ×4 (01:12→16:28)
[2020-03-20 06:08] LABS: INR 1.9; PROTIME 22.2 Seconds (11.0-16.0)
[2020-03-20 06:10] LABS: BASO# 0.05 X1000 (0.0-0.2); BASO% 1.4 % (0.0-0.8); EOS# 0.06 X1000 (0.0-0.7); EOS% 1.7 % (0.0-10.0); HEMATOCRIT 42.1 % (42.0-52.0); HEMOGLOBIN 14.6 g/dL (14.0-18.0); LYMPH# 1.25 X1000 (1.2-3.4); MCH 29.5 PG (27-31); MCHC 34.7 g/dL (33-37); MCV 85.1 FL (81-99); MONO# 0.52 X1000 (0.11-0.59); MONO% 14.6 % (1.7-9.3); MPV 9.9 FL (7.4-10.4); NEUT# 1.69 X1000 (1.4-6.5); NEUT% 47.3 % (42.2-75.2); PLT 180 X1000 (130-400); RBC 4.95 XMIL (4.7-6.1); RDW 14.5 % (11.5-14.5); WBC 3.57 X1000 (4.8-10.8)
[2020-03-20 06:25] LABS: ESTIMATED GFR > 60
[2020-03-20 06:42] LABS: AGAP 8; ALB/GLOB RATIO 1.1; ALBUMIN 2.6 g/dL (3.5-5.0); ALKALINE PHOSPHATASE 141 U/L (32-122); BUN 8 mg/dL (8-22); CALCIUM 7.5 mg/dL (8.8-10.2); CHLORIDE 99 mmol/L (98-107); COSMO 262; CREATININE 0.8 mg/dL (0.7-1.2); GLUCOSE 81 mg/dL (70-104); GOT 3651 U/L (10-34); GPT 5416 U/L (10-44); POTASSIUM 4.3 mmol/L (3.5-5.1); SODIUM 132 mmol/L (136-145); TCO2 25 mmol/L (25-35); TOTAL BILIRUBIN 7.82 mg/dL (0.20-1.00); TOTAL PROTEIN 4.9 g/dL (6.3-8.3)
[2020-03-20 07:20] LABS: BANDS 4 % (0-1); LYMPHS 28 % (21-51); MONO 12 % (1-9); SEGS 52 % (42-75)
[2020-03-20] MEDS: MORPHINE IV PRN ×4 (08:26→20:25)
--- NOTE | 2020-03-20 09:02 | PROGRESS NOTE ---
DATE: 03/20/2020 SUBJECTIVE: Mr. Shea with still quite a bit of nausea. He is tolerating full liquids to a point. He has still abdominal discomfort in the right upper quadrant. OBJECTIVE: Vital Signs: Temperature 98 degrees, pulse 74, respirations 20, blood pressure 104/67. Eyes: Pupils are equal and round. Lungs: Lungs are clear in all lung mauro. Cardiovascular exam: Regular rhythm and rate without murmur or S3. Abdomen: Abdomen is soft. Skin: Skin is warm and dry. : Urine output is 1700 mL. ASSESSMENT AND PLAN: A 39-year-old gentleman with history of intravenous drug abuse and acute viral hepatitis A. Suspect gallbladder findings were secondary to this, and advised against cholecystectomy at this time. He does have worsening liver function, so continue medical management at this time. Continue on full liquids. Hematocrit is 42, hemoglobin is 14. Liver enzymes are starting to come down a little bit. His AST is 3651, ALT 5416. Renal function looks good. REVIEW OF HIS CURRENT ORDERS: He is getting ertapenem 1 g IV q. 24 hours, and he gets morphine for pain 2 mg IV q. 4 hours. He is on normal saline 125 mL an hour. He reports his bowels are moving well. cc: Ben Laird MD
[2020-03-21] MEDS: NS 1,000 ML IV SCH ×3 (01:14→19:31)
[2020-03-21] MEDS: INVANZ 1 GM/NS 1 GM/50 ML IVPB IV SCH (01:14)
[2020-03-21] MEDS: MORPHINE IV PRN ×6 (01:17→23:50)
[2020-03-21 06:41] LABS: INR 1.55; PROTIME 18.9 Seconds (11.0-16.0)
[2020-03-21 06:44] LABS: BASO# 0.07 X1000 (0.0-0.2); BASO% 1.8 % (0.0-0.8); EOS% 2.6 % (0.0-10.0); HEMATOCRIT 43.6 % (42.0-52.0); HEMOGLOBIN 14.9 g/dL (14.0-18.0); LYMPH# 1.68 X1000 (1.2-3.4); LYMPH% 43.1 % (20.5-51.1); MCH 29.4 PG (27-31); MCHC 34.2 g/dL (33-37); MCV 86.2 FL (81-99); MONO# 0.36 X1000 (0.11-0.59); MONO% 9.2 % (1.7-9.3); MPV 10.2 FL (7.4-10.4); NEUT# 1.69 X1000 (1.4-6.5); NEUT% 43.3 % (42.2-75.2); PLT 179 X1000 (130-400); RBC 5.06 XMIL (4.7-6.1); RDW 14.9 % (11.5-14.5)
[2020-03-21 07:25] LABS: ESTIMATED GFR > 60
[2020-03-21 07:36] LABS: ALB/GLOB RATIO 1.2; ALBUMIN 2.8 g/dL (3.5-5.0); ALKALINE PHOSPHATASE 140 U/L (32-122); BUN 6 mg/dL (8-22); CREATININE 0.8 mg/dL (0.7-1.2); GLUCOSE 71 mg/dL (70-104); TCO2 21 mmol/L (25-35); TOTAL BILIRUBIN 10.03 mg/dL (0.20-1.00); TOTAL PROTEIN 5.1 g/dL (6.3-8.3)
[2020-03-21 07:44] LABS: GOT 2381 U/L (10-34); GPT 4312 U/L (10-44)
[2020-03-21 08:11] LABS: CHLORIDE 97 mmol/L (98-107); POTASSIUM 4.6 mmol/L (3.5-5.1); SODIUM 130 mmol/L (136-145)
[2020-03-21 08:12] LABS: AGAP 12
[2020-03-21 08:13] LABS: COSMO 257
--- NOTE | 2020-03-21 08:20 | PROGRESS NOTE ---
DATE: 03/21/2020 SUBJECTIVE: Mr. Shea feels better. His abdomen feels better so we will let him advance to a regular diet. He remains afebrile. OBJECTIVE: Temperature 97.9 degrees, pulse 66, respirations 17, blood pressure 108/64. Pupils are equal and round. Lungs are clear in all mauro. Cardiovascular Examination: Regular rhythm and rate without murmur or S3. Urine output was over 8 L. ASSESSMENT AND PLAN: Hepatitis A with elevated transaminase. His liver enzymes are starting to come down so I think he has plateaued. I will advance him to a regular diet. Possibly could go home tomorrow. There were suspected gallbladder findings. Surgery has seen and strongly advised against cholecystectomy at this time. We will continue the ertapenem and advance to a regular diet. cc: Ben Laird MD
[2020-03-21] MEDS: ZOFRAN IV PRN ×4 (10:09→23:50)
[2020-03-22] MEDS: INVANZ 1 GM/NS 1 GM/50 ML IVPB IV SCH (00:38)
[2020-03-22] MEDS: NS 1,000 ML IV SCH ×2 (00:39→10:27)
[2020-03-22] MEDS: MORPHINE IV PRN ×3 (03:57→11:59)
[2020-03-22] MEDS: ZOFRAN IV PRN ×3 (03:57→12:00)
[2020-03-22 06:50] LABS: BASO# 0.04 X1000 (0.0-0.2); EOS# 0.12 X1000 (0.0-0.7); EOS% 3.1 % (0.0-10.0); HEMATOCRIT 41.2 % (42.0-52.0); HEMOGLOBIN 14.3 g/dL (14.0-18.0); LYMPH# 1.49 X1000 (1.2-3.4); LYMPH% 38.7 % (20.5-51.1); MCH 29.7 PG (27-31); MCHC 34.7 g/dL (33-37); MCV 85.5 FL (81-99); MONO# 0.36 X1000 (0.11-0.59); MONO% 9.4 % (1.7-9.3); MPV 10.1 FL (7.4-10.4); NEUT# 1.84 X1000 (1.4-6.5); NEUT% 47.8 % (42.2-75.2); PLT 181 X1000 (130-400); RBC 4.82 XMIL (4.7-6.1); RDW 14.8 % (11.5-14.5); WBC 3.85 X1000 (4.8-10.8)
[2020-03-22 07:21] LABS: AGAP 9; ALB/GLOB RATIO 1.1; ALBUMIN 2.6 g/dL (3.5-5.0); ALKALINE PHOSPHATASE 131 U/L (32-122); BUN 8 mg/dL (8-22); CALCIUM 7.9 mg/dL (8.8-10.2); CHLORIDE 104 mmol/L (98-107); COSMO 270; CREATININE 0.7 mg/dL (0.7-1.2); ESTIMATED GFR > 60; GLUCOSE 88 mg/dL (70-104); POTASSIUM 4.1 mmol/L (3.5-5.1); SODIUM 136 mmol/L (136-145); TCO2 23 mmol/L (25-35); TOTAL BILIRUBIN 10.15 mg/dL (0.20-1.00); TOTAL PROTEIN 4.9 g/dL (6.3-8.3)
[2020-03-22 07:26] LABS: GOT 1214 U/L (10-34); GPT 3056 U/L (10-44)
--- NOTE | 2020-03-22 07:49 | DISCHARGE SUMMARY ---
ADMISSION DATE: 03/16/2020 DISCHARGE DATE: 03/22/2020 PRIMARY CARE PHYSICIAN: He has no primary care physician. HOSPITAL COURSE: Presented on 03/16/2020 with abdominal pain for 3 days. A-39 year-old with a history of asthma, IV drug abuse, presented to the emergency room with a 3-day history of having right upper quadrant abdominal pain. Patient states that at times he was nauseated and did not feel well, was seen in the emergency room at [facility], had a CT scan done which showed suspicion for cholecystitis. He had elevated transaminases and so was sent here. The concern when he got here was that he had acute hepatitis and indeed his hepatitis panel showed acute hepatitis A. We kept him on liquids, advanced his diet slowly. Clinically, he felt better. Transaminases on arrival, AST was 4323, ALT was 6096 and they seem to be plateauing. His AST came down to 1381, ALT 4312. Renal function has remained good and so he felt he could go home. Encouraged him to find a primary care physician, followup, but no surgical intervention was pursued and it may be well worth him getting primary care and following up and getting ultrasound on his gallbladder, seeing how he does once he recovers from this acute hepatitis. He had no home medications and we sent him home with no medication. While he was here, we had him on Invanz 1 g IV q.24 hours. I discouraged him taking Tylenol at this point. He could take some ibuprofen if he needed to. cc: Ben Laird MD
[2020-03-22 12:22] VITALS: BP 117/81
== END 2020-03-22 15:32 | disposition home or self-care (01) | DRG 442 ==
LOC: P.ED 18:25 → 4N 22:44 → SUATTDRO 22:44
PROVIDERS: ATTEND Emergency Medicine